=== PATIENT | male | born 1965 | race Two or more races ===

== ENCOUNTER 2020-03-07 09:57 | Outpatient (REF) | payer OTHER, SELFPAY ==
--- NOTE | 2020-03-07 09:49 | FL_ITS ---
EXAMINATION: FLUOROSCOPIC ESOPHAGRAM, BARIUM SWALLOW CLINICAL INFORMATION: Dyskinesia of esophagus COMPARISON: None. TECHNIQUE: Swallowing examination of the cervical esophagus was performed in the AP and lateral positions with self administration of thick, high density barium. Following the self administration of effervescent granules, thoracic esophagography was performed with the patient in upright and recumbent positions with thin barium. A 12.7 mm barium tablet was also administered. FLUOROSCOPY TIME: 2 minutes DOSE AREA PRODUCT: 15.6 Gy-cm2 (lincoln-centimeter squared) FINDINGS: Pharynx and cervical esophagus: Examination demonstrates normal motility without stricturing, diverticula, or obstruction. Minimal pooling of contrast material in the valleculae or piriform sinuses. No cricopharyngeal abnormalities are noted. The pharynx and cervical spine are normal in appearance. Thoracic esophagus: Esophageal motility is slightly decreased during swallowing with incomplete stripping of the primary peristaltic contractions. The bolus is completely stripped from the esophagus with subsequent secondary contractions. A few line put 2 tertiary contractions were noted, though minimal. There is no evidence of esophageal mass, ulceration, or stricture. No hiatal hernia was noted. Mild spontaneous gastroesophageal reflux was demonstrated on this exam. Valsalva maneuvers did not elicit additional reflux. Positive water siphon test. Barium pill was noted to pass through the esophagus and into the lumen of the stomach without delay. IMPRESSION: 1. One spontaneous episode of mild gastroesophageal reflux was observed. 2. Minimally decreased esophageal motility which may be related to reflux or normal aging. No focal lesions or strictures.
== END 2020-03-07 09:58 | disposition home or self-care (01) ==
LOC: HO.XRAY 09:57
PROVIDERS: Visit Provider Internal Medicine Gastroenterology
DX: K22.4 Dyskinesia of esophagus (principal); R06.00 Dyspnea, unspecified
CPT/HCPCS: 74220; 99203

== ENCOUNTER 2020-03-19 10:49 | Outpatient (REF) | payer OTHER, SELFPAY ==
--- NOTE | 2020-03-19 | PFT_ITS ---
INDICATIONS: GERD and shortness of breath. SPIROMETRY: The FEV1 to FVC 87% with an FEV1 of 3.38 L which is 82% predicted and an FVC of 3.9 L which is 74% predicted. Bronchodilators were not used. The patient declined. Maximum voluntary ventilation 94% predicted. LUNG VOLUMES: Total lung capacity 82% predicted with an expiratory reserve volume of only 14% predicted likely from an elevated BMI. DIFFUSION CAPACITY: DLCO 71% predicted. COMPARISONS: None available. INTERPRETATION: No obstructive ventilatory defect. Again, bronchodilators were not used. Normal maximum voluntary ventilation. Total lung capacity is low normal with a significantly decreased expiratory reserve volume secondary to an elevated BMI. The patient also has a mild diffusion impairment that does correct to normal when correcting for the alveolar volume, which may be due to hypoexpansion. Clinical correlation warranted. MD CYRUS Chaudhari/ARJUN / [id number]
== END 2020-03-19 10:50 | disposition home or self-care (01) ==
LOC: HO.RESP 10:49
PROVIDERS: Visit Provider Internal Medicine
DX: R06.00 Dyspnea, unspecified (principal)
CPT/HCPCS: 94060; 94727; 94729

== ENCOUNTER → 2020-03-25 16:04 | Outpatient (BNVA) | payer OTHER, SELFPAY | PROVIDERS: PCP Internal Medicine; Referring Provider Internal Medicine; Visit Provider Internal Medicine | DX: R06.00 Dyspnea, unspecified (principal); G47.33 Obstructive sleep apnea (adult) (pediatric); E66.3 Overweight; Z68.32 Body mass index [BMI] 32.0-32.9, adult; Z99.89 Dependence on other enabling machines and devices; Z71.3 Dietary counseling and surveillance | CPT/HCPCS: 99213 ==

== ENCOUNTER → 2020-06-24 13:44 | Outpatient (BNVA) | payer OTHER, SELFPAY | PROVIDERS: PCP Internal Medicine; Visit Provider Internal Medicine Gastroenterology ==

== ENCOUNTER 2020-07-09 12:44 | Outpatient (REF) | payer OTHER, SELFPAY ==
--- NOTE | ~2020-07-09 | XR_ITS ---
EXAMINATION: XR CHEST CLINICAL INFORMATION: Dyspnea previous chest x-ray April 2019 COMPARISON: Previous chest x-ray April 2019 TECHNIQUE: 2 views of the chest were obtained. FINDINGS: The cardiac and mediastinal contours are normal. The lungs are clear. There is no pleural effusion or pneumothorax. There are mild degenerative changes of the spine. XR/XR chest 2V IMPRESSION: No evidence for acute disease in the chest.
[2020-07-10 11:57] LABS: H Pylori Breath Test NOT DETECTED (NOT DETECTED)
== END 2020-07-09 12:45 | disposition home or self-care (01) ==
LOC: HO.LAB 12:44
PROVIDERS: PCP Internal Medicine; Visit Provider Internal Medicine Gastroenterology
DX: R06.00 Dyspnea, unspecified (principal); R06.89 Other abnormalities of breathing; K21.00 Gastro-esophageal reflux disease with esophagitis, without bleeding; Z11.0 Encounter for screening for intestinal infectious diseases
CPT/HCPCS: 71046; 83013; 99211

== ENCOUNTER → 2020-09-20 09:43 | Outpatient (BNVA) | payer OTHER, SELFPAY | PROVIDERS: PCP Internal Medicine; Visit Provider Internal Medicine Gastroenterology ==